=== PATIENT | female | born 1955 | race Caucasian/White ===

== ENCOUNTER 2018-12-29 08:48 | Inpatient (IN) | payer OTHER ==
[~2018-12-29] VITALS: Ht 152.4 cm; Wt 81.6 kg
--- NOTE | 2018-12-29 08:54 | NUR ---
DR WHITNEY AT BEDSIDE FOR EVAL AT THIS TIME//APR RN
--- NOTE | 2018-12-29 09:00 | NUR ---
CLEANED PATIENT, SMALL BM X 1.//APR RN
[2018-12-29 09:25] VITALS: Ht 152.4 cm; Wt 81.6 kg
[2018-12-29 09:27] LABS: PLATELET COUNT 226 x10^3mcL (130-400); RED CELL DISTRIBUTION WIDTH 13.6 % (11.5-14.5)
[2018-12-29 09:39] LABS: BILIRUBIN TOTAL 0.94 mg/dL (0.20-1.00); CALCIUM 8.6 mg/dL (8.5-10.1); CARBON DIOXIDE 18.7 mmol/L (21-32); POTASSIUM SERUM 3.4 mmol/L (3.5-5.1); TOTAL PROTEIN, SERUM 6.2 g/dL (6.4-8.2)
[2018-12-29 09:41] LABS: CREATININE SERUM 4.2 mg/dL (0.6-1.0)
--- NOTE | 2018-12-29 09:42 | NUR ---
PATIENT OUT OF UNIT FOR CT SCAN AT THIS TIME//APR RN
--- NOTE | 2018-12-29 10:00 | NUR ---
F/C INSERTED, 16 FR, URINE COLLECTED AND SENT TO LAB.//NOV RN
[2018-12-29 10:04] LABS: BAND NEUTROPHIL 9 % (0-10); BASOPHIL 0 % (0-2); MONOCYTE 2 % (0-7); SEGMENTED NEUTROPHILS 77 % (37-75)
[2018-12-29 10:05] LABS: PLATELET MORPHOLOGY PLATELETS NORMAL; rbc morphology (normal/abnorm) ABNORMAL (NORMAL)
[2018-12-29 10:44] LABS: UA SPECIFIC GRAVITY 1.015 (1.005-1.035); microscopic required? YES; urine erythrocyte 3+ (NEGATIVE)
--- NOTE | 2018-12-29 11:30 | NUR ---
DR WHITNEY APPRISED OF PATIENT'S BP: 88/38, NEW ORDER FOR NS BOLUS GIVEN AND CARRIED OUT../APR RN
[2018-12-29] MEDS ORDERED: VIMPAT100 M1 PO (11:36)
[2018-12-29] MEDS ORDERED: LEVOTHYROXIN0.075 M2 PO (11:36)
[2018-12-29] MEDS ORDERED: VITA-BEE WITH1 EACH PO (11:37)
[2018-12-29] MEDS ORDERED: PROGRAF1 MG PO (11:37)
[2018-12-29] MEDS ORDERED: ESCITALOPRAM OX20 MG PO (11:37)
[2018-12-29] MEDS ORDERED: ALLOPURINOL100 MG PO (11:38)
[2018-12-29] MEDS ORDERED: ASPIR 8181 MG PO (11:38)
[2018-12-29] MEDS ORDERED: CARVEDILOL25 M1 PO (11:38)
[2018-12-29] MEDS ORDERED: FAMOTIDINE40 MG PO (11:39)
[2018-12-29] MEDS ORDERED: NOR10 PO (11:39)
[2018-12-29] MEDS ORDERED: PREDNISONE5 MG PO (11:39)
[2018-12-29] MEDS ORDERED: PRAVACHOL20 MG PO (11:39)
[2018-12-29] MEDS ORDERED: LASIX20 MG PO (11:40)
[2018-12-29] MEDS ORDERED: FERROUS SULFAT325 M2 PO (11:40)
[2018-12-29] MEDS ORDERED: SENNA PLUS1 TAB PO (11:40)
[2018-12-29] MEDS ORDERED: CALCIUM 600 +1 EAC2 PO (11:40)
[2018-12-29] MEDS ORDERED: D3 DOTS2000 UNIT PO (11:41)
[2018-12-29] MEDS ORDERED: LOT5 PO (11:41)
[2018-12-29] MEDS ORDERED: DOC-Q-LACE100 MG PO (11:41)
[2018-12-29] MEDS ORDERED: TRAZODONE50 M1 PO (11:42)
[2018-12-29] MEDS ORDERED: HALOPERIDOL2 MG PO (11:42)
[2018-12-29] MEDS ORDERED: ALENDRONATE SOD70 M2 PO (11:42)
[2018-12-29] MEDS ORDERED: [UNRECOGNIZED DRUG - OTHER] TOP (11:43)
[2018-12-29] MEDS ORDERED: [UNRECOGNIZED DRUG - REMARK] TOP (11:43)
--- NOTE | 2018-12-29 11:45 | NUR ---
MED REC COMPLETED USING LIST BROUGHT IN BY SISTER & REVIEWING W/ SISTER
--- NOTE | 2018-12-29 12:10 | NUR ---
CLEANED PATIENT, SMALL BM X 1.//APR RN
[2018-12-29 12:15] LABS: AMPHETAMINE QUAL UR NONE DETECTED (See below)
[2018-12-29 12:21] LABS: CHOLESTEROL/HDL RATIO 2.4; MAGNESIUM 0.6 mg/dL (1.8-2.4)
--- NOTE | 2018-12-29 12:31 | NUR ---
REPORT GIVEN TO SALVADOR SUGGS FOR ICU 5. ADVISED PATIENT AND SISTER OF TRANSFER TO ICU AT THIS TIME//APR RN
--- NOTE | 2018-12-29 12:40 | NUR ---
PT ARRIVED FROM ED AT THIS TIME ACCOMPANIED BY RN AND 2 ERT. TRANSFERRED FROM [facility] TO ICU BED W/O COMPLICATIONS. AAOX2. SPEECH SLOW AND CLEAR, NO FACIAL DROOP. EXOPTHALMOS NOTED. 2L NC IN PLACE. CHEST EXPANSION SYMM, BREATHING E/U AND REGULAR EFFORT. NO SOB. NO COUGH. NO N/V. ABD SOFT, ROUND. HERNIA TO LEFT SIDE, REDUCIBLE. LIQUID BM. NO EDEMA NOTED. CAP REFILL IMM. PULSES MODERATE TO BUE AND WEAK TO BLE. RIGHT WRIST 24G PERIPHERAL IV SITE WNL AND DRESSING CDI. 2ND NS BOLUS IN PROGRESS.
--- NOTE | 2018-12-29 12:45 | NUR ---
DR. VILLAREAL AT BEDSIDE TO ASSESS PT. UPDATED ON PT'S STATUS AND CONDITION. ALL QUESTIONS ADDRESSED. STATES WILL INPUT ORDER FOR 3RD BOLUS AND INPUT ORDER FOR LEVOPHED NEEDED
--- NOTE | 2018-12-29 13:49 | NUR ---
71/39 (48). LEVOPHED INITIATED @ 2 MCG/MIN
[2018-12-29 13:57] VITALS: BP 85/41
--- NOTE | 2018-12-29 14:13 | NUR ---
73/37 (49) LEVOPHED TITRATED FROM 2 MCG/MIN TO 4 MCG/MIN
--- NOTE | 2018-12-29 14:31 | NUR ---
NIBP 82/33 MAP 53, LEVOPHED TITRATED FROM 4 MCG/MIN TO 6 MCG/MIN. WILL CONT TO MONITOR.
--- NOTE | 2018-12-29 14:37 | NUR ---
ECHOCARDIOGRAM PENDING-HAVING PROCEDURE
--- NOTE | 2018-12-29 15:01 | NUR ---
DR. PICHARDO AT BEDSIDE TO ASSESS PT. UPDATED ON PT'S STATUS AND CONDITION. STATES TO SET UP CVP ONCE CENTRAL LINE IS CONFIRMED AND IF <6 ADMINISTER ONE LITER NS BOLUS. SPEAKING WITH PT'S SISTER
[2018-12-29 15:15] VITALS: BP 89/42
--- NOTE | 2018-12-29 15:31 | NUR ---
BP 71/36 (48) LEVOPHED TITRATED FROM 6 MCG/MIN TO 8 MCG/MIN.
--- NOTE | 2018-12-29 17:05 | NUR ---
BP 86/41 (56). LEVOPHED TITRATED FROM 8 MCG/MIN TO 10 MCG/MIN
--- NOTE | 2018-12-29 17:59 | NUR ---
BP 83/36 (55). LEVOPHED TITRATED FROM 10 MCG/MIN TO 12 MCG/MIN.
[2018-12-29 18:36] LABS: T3 TOTAL 0.61 ng/mL
[2018-12-29 18:36] LABS: CALCIUM 7.1 mg/dL (8.5-10.1); CARBON DIOXIDE 16.4 mmol/L (21-32); POTASSIUM SERUM 3.4 mmol/L (3.5-5.1)
[2018-12-29 18:38] LABS: CREATININE SERUM 4.4 mg/dL (0.6-1.0)
--- NOTE | 2018-12-29 18:47 | NUR ---
77/42 (53). LEVOPHED TITRATED FROM 12 MCG/MIN TO 6 MCG/MIN AND NEOSYNEPHRINE INITIATED @ 50 MCG/MIN. WILL CONTINUE TO MONITOR
--- NOTE | 2018-12-29 18:58 | NUR ---
84/40 (59) NEOSYNEPHRINE TITRATED FROM 50 MCG/MIN TO 75 MCG/MIN. LEVOPHED INFUSING @ 6 MCG/MIN
[2018-12-29 19:00] LABS: FREE T4 2.49 ng/dL (0.76-1.46); FREE THYROXINE INDEX 3.1 ug/dL (1.4-4.5); T4(THYROXINE) 7.4 ug/dL (4.7-13.3)
--- NOTE | 2018-12-29 19:06 | NUR ---
RECEIVED REPORT FROM IFEANYI FRANCO. ASSUMING ALL CARE
[2018-12-29 19:12] VITALS: BP 84/40
--- NOTE | 2018-12-29 19:12 | NUR ---
PT IS A/OX3. RESPONDS TO VERBAL STIMULI. PUPILS WITH SLUGGISH RESPONSE TO LIGHT, 4 MM BILAT. NO FACIAL DROOP NOTED. PT ABLE TO FOLLOW COMMANDS AND MAKE NEEDS KNOWN. PT WITH PERIODS OF CONFUSION NOTED. EENT FREE OF DISCHARGE. PT IS PARTIALLY BLIND. ORAL MUCOSA PINK AND MOIST. LIJ CVC IN PLACE WITH DRESSING CDI. BREATHING IS E/U ON 2 LPM VIA NC. LUNGS SOUND CLEAR TO BUL AND DIMIN TO BLL. SYMMETRICAL CHEST EXPANSION NOTED. S1/S2 HEART SOUNDS AUSCULTATED. CHEST WALL EQUAL AND SYMMETRICAL. CVP=12. LEVOPHED INFUSING @ 6 MCG/MIN, NEOSYNEPHRINE INFUSING @ 75 MCG/MIN. MOD PULSES X4 EXTREMITIES AND WEAK PULSES NOTED TO BLE. CAP REFILL <3 SECS. SKIN IS WARM AND DRY. NO EDEMA NOTED. SCD IN PLACE. RIGHT WRIST IV REMAINS SALINE LOCKED. 1/2 NS INFUSING @ 100 ML/HR. ABD IS SOFT/ROUND. BOWEL SOUNDS ACTIVE X4 QUADRANTS. HERNIA NOTED TO LLQ. NO BM NOTED. PT WITH MOREL INTACT/SECURED, DRAINING VIA GRAVITY WITH YELLOW COLORED URINE. POOR URINE OUTPUT NOTED. NO LABIAL EDEMA NOTED. INACTIVE LEFT AV SHUNT WITH NO BRUIT/THRILL. WARTS NOTED TO BILAT TOES, LEFT FINGERS, AND RIGHT THUMB. SKIN IS INTACT. PT ASSISTED TO REPOSITION Q2H AND PRN FOR COMFORT. PT IS CALM AND COOPERATIVE. FAMILY AT BEDSIDE. BED IN LOW POSITION. CALL LIGHT IN REACH. WILL CONT TO MONITOR
--- NOTE | 2018-12-29 19:15 | NUR ---
NIBP 87/42, MAP 57. LEVOPHED TITRATED TO 8 MCG/MIN
--- NOTE | 2018-12-29 19:20 | NUR ---
DR. SALVADOR AT BEDSIDE SPEAKING WITH THE PT AND FAMILY IN REGARDS TO PT'S STATUS AND POC. ALL QUESTIONS/CONCERNS ADDRESSED AT THIS TIME. PER DR. SALVADOR, ORDER 25% ALBUMIN X2 ADMINISTERED [address] MARCOS AT BEDSIDE RECEIVING VERBAL ORDER.
--- NOTE | 2018-12-29 19:45 | NUR ---
PT TAKEN FOR CT OF ABD VIA GUERNEY ACCOMPANIED BY PRIMARY RN AND CHASSIS DRIVER.
--- NOTE | 2018-12-29 19:59 | NUR ---
DR CLINTON CALLED, UPDATED ON STATUS. MADE AWARE REGARDING PTS MEROPENEM ORDER ON HOLD D/T PTS ALLERGY TO PCN AND ALSO WITH HX OF KIDNEY TRANSPLANT. TELEPHONE ORDER GIVEN FOR MEROPENEM 1 GM X1 NOW, THEN MEROPENEM 500MG Q12H. TELEPHONE ORDER READ BACK. ORDER NOTED AND CARRIED OUT.
--- NOTE | 2018-12-29 20:10 | NUR ---
PT RETURNED FROM CT-SCAN. PT TOLERATED WELL. NO S/S OF ACUTED DISTRESS NOTED. PT RECONNECTED TO FULL GYMNASIUM TEACHER. NIBP 88/36, MAP 54. NEOSYNEPHRINE TITRATED TO 100 MCG/MIN. PT ON 2 LPM VIA NC WITH 95% O2 SATURATION. PT NOTED TO HAVE A MOD SIZE LIQUID BM. FULL LINEN CHANGE PROVIDED. FAMILY AT BEDSIDE. BED IN LOW POSITION. CALL LIGHT IN REACH. WILL CONT TO MONITOR.
--- NOTE | 2018-12-29 21:30 | NUR ---
NIBP 82/38, MAP 55. LEVOPHED TITRATED TO 12 MCG/MIN
--- NOTE | 2018-12-29 21:57 | NUR ---
PT C/O FEELING NAUSEAS. PT MEDICATED WITH ZOFRAN 4 MG IVP PER EMAR. WILL CONT TO MONITOR
--- NOTE | 2018-12-29 22:00 | NUR ---
NIBP 116/58, MAP 80. LEVOPHED TITRATED TO 10 MCG/MIN
--- NOTE | 2018-12-29 23:03 | NUR ---
REPORTED (+) BLOOD CX OF GRAM NEG RODS TO DR SUGGS. NO NEW ORDERS GIVEN.
[2018-12-29 23:10] VITALS: BP 95/43
--- NOTE | 2018-12-30 00:30 | NUR ---
NIBP 117/80, MAP 80. NEOSYNEPRHINED TITRATED TO 75 MCG/MIN
--- NOTE | 2018-12-30 00:45 | NUR ---
NIBP 108/55, MAP 75. LEVOPHED TITRATED TO 8 MCG/MIN
--- NOTE | 2018-12-30 01:30 | NUR ---
NIBP 111/57, MAP 76. NEOSYNEPHRINE TITRATED TO 50 MCG/MIN
--- NOTE | 2018-12-30 01:35 | NUR ---
DR. CLINTON AT BEDSIDE. UPDATED ON PT'S STATUS. MADE AWARE BLOOD CULTURES ARE POSITIVE FOR GRAM NEGATIVE BACILLI. PER DR. CLINTON, DC ZYVOX AND CONTINUE WITH MERREM ABX. WILL CARRY OUT ORDER
--- NOTE | 2018-12-30 01:45 | NUR ---
NIBP 116/83, MAP 98. NEOSYNEPHRINE TITRATED TO 25 MCG/MIN
--- NOTE | 2018-12-30 01:46 | NUR ---
PT C/O GEN ABD PAIN RATED 8/10. PT MEDICATED WITH NORCO PER EMAR
--- NOTE | 2018-12-30 02:00 | NUR ---
NIBP 110/57, MAP 76. NEOSYNEPHRINE TURNED OFF AT THIS TIME
--- NOTE | 2018-12-30 02:00 | NUR ---
NIBP 110/57, MAP 76. LEVOPHED TITRATED TO 6 MCG/MIN
--- NOTE | 2018-12-30 02:15 | NUR ---
NIBP 101/48, MAP 76. LEVOPHED TITRATED TO 4 MCG/MIN
--- NOTE | 2018-12-30 03:01 | NUR ---
PT C/O FEELING NAUSEAS. PT MEDICATED WITH ZOFRAN 4 MG IVP PER EMAR
[2018-12-30 03:07] VITALS: BP 105/51
--- NOTE | 2018-12-30 04:15 | NUR ---
NIBP 132/56, MAP 94. LEVOPHED TITRATED TO 2 MCG/MIN
--- NOTE | 2018-12-30 04:30 | NUR ---
NIBP 141/47, MAP 82. LEVOPHED TURNED OFF AT THIS TIME
[2018-12-30 04:34] LABS: MAGNESIUM 1.3 mg/dL (1.8-2.4); PHOSPHOROUS 6.8 mg/dL (2.5-4.9)
[2018-12-30 04:37] LABS: BILIRUBIN TOTAL 2.52 mg/dL (0.20-1.00); CALCIUM 6.7 mg/dL (8.5-10.1); CARBON DIOXIDE 15.8 mmol/L (21-32); POTASSIUM SERUM 4.5 mmol/L (3.5-5.1)
[2018-12-30 04:42] LABS: ALBUMIN 3.1 g/dL (3.4-5.0); CREATININE SERUM 4.5 mg/dL (0.6-1.0); TOTAL PROTEIN, SERUM 5.7 g/dL (6.4-8.2)
--- NOTE | 2018-12-30 04:53 | NUR ---
PT HAD A MOD SIZE LIQUID DARK GREEN BM. STOOL CULTURE OBTAINED AND SENT TO LAB. FULL BED BAD PROVIDED. GOWN AND LINENS CHANGED. PERICARE AND MOREL CARE PROVIDED. SCD APPLIED TO BLE. 1/2NS INFUSING @ 100 ML/HR. BED IN LOW POSITION. CALL LIGHT IN REACH. WILL CONT TO MONITOR
[2018-12-30 04:58] LABS: BASOPHIL % 0 % (0-2); PLATELET COUNT 121 x10^3mcL (130-400)
--- NOTE | 2018-12-30 05:03 | NUR ---
CRITICAL LAB RESULT: WBC 33.3. DR. SUGGS MADE AWARE
--- NOTE | 2018-12-30 06:16 | NUR ---
SPOKE TO DR. SALVADOR VIA TELEPHONE. UPDATED ON PT'S CURRENT STATUS AND MOST RECENT LABS. NO NEW ORDERS.
--- NOTE | 2018-12-30 07:10 | NUR ---
REPORT GIVEN TO CAROLINE FRANCO FOR CONTINUITY OF CARE. ALL QUESTIONS/CONCERNS ADDRESSED AT THIS TIME. ENDORSING ALL CARE
[2018-12-30 07:18] VITALS: BP 109/56
--- NOTE | 2018-12-30 07:18 | NUR ---
THE PATIENT IS SLIGHTLY LETHARGIC, AND ORIENTED TO PERSON AND TIME WITH EPISODES OF CONFUSION. PATIENT DENIES PAIN OR SHORTNESS OF BREATH AT THIS TIME. LIJ CVC WITH DRESSING INTACT. CVP 13. IVF 1/2 NS AT 100 ML/HR. ANOTHER IV SITE TO RIGHT WRIST. PATIENT IS ON OXYGEN 2L/MIN. BREATHING IS EVEN AND UNLABORED. MOREL CATH TO GRAVITY DRAINING SCANT AMOUNT OF YELLOW URINE. CALL LIGHT WITHIN REACH. SIDE RAILS UP X3. BED IS AT LOWEST POSITION.
--- NOTE | 2018-12-30 10:10 | NUR ---
DR. ZHENG AND DR. JOSE ARE MAKING ROUND TO SEE THE PATIENT.
--- NOTE | 2018-12-30 11:15 | NUR ---
DR. LOPES IN TO SEE THE PATIENT. UPDATE WAS PROVIDED TO THE DOCTOR.
--- NOTE | 2018-12-30 11:16 | NUR ---
DR. MARQUEZ UPDATED PLAN OF CARE, ORDERED PROMATINE PO 5MG TID, D5W WITH BICARB X3AMPS @100ML/HR AND NA+BICARB 650MG PO Q6HRS.HD TO BE HOLD OFF AND CONTINUE TO MONITOR URINE OUT. AWAITING FOR ORDERS TO BE ENTER.
--- NOTE | 2018-12-30 12:02 | NUR ---
PATIENT HAD BM WITH WATERY STOOL; PATIENT WAS CLEANSED, AND GOWN/LINEN CHANGED.
[2018-12-30 12:09] VITALS: BP 116/62
[2018-12-30 16:00] VITALS: BP 108/52
[2018-12-30 16:23] LABS: CALCIUM 6.9 mg/dL (8.5-10.1); CARBON DIOXIDE 17.6 mmol/L (21-32); POTASSIUM SERUM 3.6 mmol/L (3.5-5.1)
[2018-12-30 16:37] LABS: CREATININE SERUM 4.3 mg/dL (0.6-1.0)
--- NOTE | 2018-12-30 16:44 | NUR ---
NOTIFIED DR. JOSE NA 123 CREAT 4.3 MADE AWARE, RECIEVED NO NEW ORDERS.
--- NOTE | 2018-12-30 17:50 | NUR ---
DR. LOPES AND DR. JOSE ARE AT BEDSIDE DISCUSSING THE CARE PLAN OF THE PATIENT TO THE FAMILY.
--- NOTE | 2018-12-30 18:21 | NUR ---
PROVIDED UPDATES TO DR. CLINTON WBC 33.3 AND VITAL SIGNS. RECIEVED NO NEW ORDERS.
--- NOTE | 2018-12-30 18:24 | NUR ---
DR. GAINES AT BEDSIDE DISCUSSING HD OPTIONS WITH FAMILY AND PT AT BEDSIDE. PER MD TO MONITOR NA LEVEL AND CREAT BUN Q6HRS AND TO CONTINUE TO MONITOR.
--- NOTE | 2018-12-30 19:03 | NUR ---
SODIUM BICARB 100ML IN 1/2NS 1000ML IVF CHANGED FOR THE PATIENT AND THE RATE 70CC/HR. THE FAMILY IS AT BEDSIDE WITH THE PATIENT.
--- NOTE | 2018-12-30 19:30 | NUR ---
RECEIVED REPORT FROM SALVADOR FARRIS. PT IS ALERT AND ORIENTED X3. LETHARGIC. 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 PT IS BREATHING E.U ON 2L NC. LUNG SOUNDS CLEAR TO BILATERAL UPPER LOBES, DIMINISHED TO BILATERAL LOWER LOBES. ABD IS SOFT AND ROUNDED WITH ACTIVE BOWEL SOUNDS X4Q, WITH PROTRUSION TO LEFT SIDE OF ABD. MOREL DRAINING VIA GRAVITY, URINE YELLOW WITH POOR OUTPUT. PT HAS LIJ AND RIGHT HAND IV PATENT, DRESSING CDI. SODIUM BICARB INFUSING AT 70 ML/HR. ALL QUESTIONS AND CONCERNS ANSWERED, WILL CONTINUE TO MONITOR.
--- NOTE | 2018-12-30 22:01 | NUR ---
DR. GAINES CALLED TO ASK FOR SERUM OSM. AND URINE OSM. STAT. ALSO ASKED THAT THE TAROLIMUS LEVEL BE CHECKED ONE HOUR PRIOR TO ADMINISTRATION. FINALLY, HE WOULD LIKE TO BE CALLED WHEN THE LAB RESULTS COME IN FOR 10 PM. HE LEFT HIS PHONE NUMBER [phone].
[2018-12-30 22:42] LABS: CALCIUM 6.4 mg/dL (8.5-10.1); CARBON DIOXIDE 20.4 mmol/L (21-32); POTASSIUM SERUM 3.5 mmol/L (3.5-5.1)
[2018-12-30 23:05] LABS: CREATININE SERUM 4.3 mg/dL (0.6-1.0)
--- NOTE | 2018-12-30 23:40 | NUR ---
DAUGHTER STANLEY ROSALES LEFT HER PHONE NUMBER: [phone].
--- NOTE | 2018-12-31 00:46 | NUR ---
DR. LOPES CALLED, MADE HIM AWARE OF ABNORMAL LABS, WELL SERUM OSMALALITY AND URINE OSMALALITY. ORDERED CXR FOR 0500, AND WOULD LIKE A PHONE CALL IF SODIUM BECOMES <120.
[2018-12-31 05:05] LABS: BASOPHIL % 0 % (0-2); CALCIUM 6.6 mg/dL (8.5-10.1); CARBON DIOXIDE 21.7 mmol/L (21-32); MAGNESIUM 1.9 mg/dL (1.8-2.4); PHOSPHOROUS 5.5 mg/dL (2.5-4.9); PLATELET COUNT 91 x10^3mcL (130-400); POTASSIUM SERUM 3.4 mmol/L (3.5-5.1); RED CELL DISTRIBUTION WIDTH 14.3 % (11.5-14.5)
[2018-12-31 05:13] LABS: CREATININE SERUM 4.2 mg/dL (0.6-1.0)
--- NOTE | 2018-12-31 05:38 | NUR ---
PROVIDED PT WITH FULL BED BATH, CENTRAL LINE CARE, AND MOREL CARE. PT HAD 1 LOOSE BM. PT TOLERATED WELL.
--- NOTE | 2018-12-31 07:18 | NUR ---
DR. LOPES CALLED TO CHECK FOR UPDATES. LABS WERE READ OFF TO ORDERED THAT SODIUM BICARB BE DECREASED TO 50 ML/HR.
[2018-12-31 07:45] VITALS: BP 127/81
--- NOTE | 2018-12-31 07:45 | NUR ---
RESUME CARE: THE PATIENT MORE AWAKE AND ORIENTED TO PERSON, PLACE AND DATE OF WITH EPISODES OF FORGETFULNESS. PATIENT COMMUNICATES WITH SLOW SPEECH, AND ABLE TO MAKE NEEDS KNOWN. TELE # 5 READS SINUS RHYTHMS. CVC TO LIJ WITH CVP 12. IVF SODIUM BICARB WITH 1/2NS AT 70 CC/HR. ANOTHER IV SITE AT RIGHT WRIST. MOREL CATH TO GRAVITY DRAINING YELLOW URINE. CALL LIGHT WITHIN REACH. SIDE RAILS UP X3. BED AT LOWEST POSITION, AND ALARM IS ON.
--- NOTE | 2018-12-31 10:05 | NUR ---
DR. ZHENG AT BEDSIDE WITH RESIDENTS. PROVIDED UPDATES AND PT'S NA 123, BUN 54 AND CREAT. PER MD TO TRANSFER PT TO TELE.
--- NOTE | 2018-12-31 10:58 | NUR ---
EMPTIED 510ML OF CLEAR YELLOW URINE OUTPUT.
[2018-12-31 11:26] LABS: CALCIUM 6.8 mg/dL (8.5-10.1); CARBON DIOXIDE 22.3 mmol/L (21-32); POTASSIUM SERUM 3.3 mmol/L (3.5-5.1)
[2018-12-31 11:41] LABS: CREATININE SERUM 4.1 mg/dL (0.6-1.0)
[2018-12-31 11:43] VITALS: BP 128/67
--- NOTE | 2018-12-31 14:28 | NUR ---
NASAL CANNULA REMOVED FROM THE PATIENT'S NOSE BY RT XAVIER; O2 SAT 95% WHILE THE PATIENT IS ON ROOM AIR.
--- NOTE | 2018-12-31 14:33 | NUR ---
PT STAFF CAME TO BEDSIDE FOR PT TREATMENT.
--- NOTE | 2018-12-31 14:33 | NUR ---
EMPTIED MOREL CATH 425ML OF CLEAR YELLOW OUTPUT.
--- NOTE | 2018-12-31 14:42 | NUR ---
DR. PICHARDO IN TO SEE THE PATIENT.
--- NOTE | 2018-12-31 14:43 | NUR ---
Intervention 1. Continue with Cardiac -LoChol-LowFat and add mechanically soft chopped texture.
--- NOTE | 2018-12-31 14:43 | NUR ---
[facility] Dx: Sepsis, Renal Failure, UTI PMHx: Seizure disorder, Lupus, renal transplant in 1995, HTN, Hypothyroidism, Psychosis PSHx: Kidney transplant in 1995, b/l hip replacements, b/l nephrectomy 5-6 yrs ago, tumor in throat 5 years ago Labs: (12/29) A1C 5.8 (12/31) Na 123L, K 3.4L, Cl 89L, Glucos 206H, BUN 54H, Creat 4.2H, ca 6.6L, Phos 5.5H, WBC 18.3H, Hgb 8.2L, Hct 24L Meds: Colace, Dextrose 50% water, Ferrous Sulfate, Humulin, Lexapro, Pepcid, Precision PCX Blood Glucose Strips, Solu-Cortef, Vitamin D, Zofran, Heparin Sodium Diet: Cardiac-LoChol/LoFat/2gNa PO Intake: (12/29) NPO, (12/30) Cardiac B-30%, Cardiac L-20%, Cardiac D-40%, (12/31) Cardiac L-50%(per SALVADOR Alvarado) Ht: 152cm, 59in Wt: 81.6kg, 179# BMI: 35.2kg/m2 (Obese) Bed scale: 182# (taken by SALVADOR Alvarado) IBW: 99#, 45kg %IBW: 180% UBW: Not able to obtain due to pt sleeping and no family members with her. Age: 63/F Food Allergies: Egg Skin:Intact, but has warts on hand and feet Lul: 16 Edema: None GI: Last BM: 12/30/18 Trigger: admitted w/potential risk diagnosis. Per H&P: 63 year old female with past medical history of seizure disorder, lupus, renal transplant in 1995 brought in by ambulance from home with one day history of generalized weakness. Per sister, Tracey, patient was slow to get out of bed this morning. She stood up, felt dizzy, and immediately sat back down. Sister thinks she may have fainted but she stated patient felt hot and seemed confused. She also states patient did not eat anything last night, had one episode of nonbloody, nonbilious diarrhea, and one episode of nonbloody, nonbilious vomiting. Also complains of lower abdominal pain and dysuria. Patient denies any chest pain, shortness of breath, or headache. Patient follows up with Dr. Yobany Davis at [place] for her renal transplant. Patient was recently discharged last week from [place] for acute diastolic CHF. Patient is ambulatory with cane at baseline and not on home oxygen. Pt Visit: Pt was sleeping when I arrived to her room and she had no family at bedside to answer questions. Spoke with RN Jenny and she pt had no nausea, vomiting, or constipation. Jenny stated she had only a little bit of diarrhea. Jenny stated her PO intake was 50% because she has a hard time chewing hard textured foods like her meat. Jenny did say she has all her teeth, but that she chews and eats very slowly. Jenny stated that the pt is currently not on dialysis yet. Spoke with Dr. Aguila about adding mechanically soft chopped texture to current diet. Problem with: N: No V: No D: Yes C: No Problems with: Chewing: None Swallowing: None Current appetite: Fair Recent wt change: None %wt change: None Vitamin/Supplement use: Currently taking Iron and Vit. D in the hospital, no one available to ask if she takes any at home. Special diet at home: Unable to attain at this time (pt was asleep and no one at bedside) Physical activity: Unable to attain at this time (pt was asleep and no one at bedside) Education: Unable to give at this time due to pt sleeping and no one at bedside. Will be followed up at next visit. 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 Inadequate oral intake r/t difficulty chewing her food aeb po intake of 50% and diet recommendation of mechanically soft chopped foods. Intervention 1. Continue with Cardiac -LoChol-LowFat and add mechanically soft chopped texture. Monitor/Evaluate Goal: PO intake at least 75% of estimated needs Monitor: PO intake, Labs, GI function, tolerance of diet and textures HR F/U in 01/02-01/03
--- NOTE | 2018-12-31 14:45 | NUR ---
DR. HART (COVERING DR. JOSE) WAS INFORMED OF THE AMOUNT OF URINE OUTPUT TOTAL OF 935ML: 510ML BEFORE LASIX 40MG IVP GIVEN AT ABOUT 1057 AM AND 425ML OF URINE AFTER LASIX).
--- NOTE | 2018-12-31 14:57 | NUR ---
RECEIVED REPORT FROM KALEIGH FRANCO IN ICU. AWAITING PATIENT ARRIVAL TO FLOOR.
--- NOTE | 2018-12-31 14:57 | NUR ---
REPORT GIVEN TO SALVADOR GALINDO. FROM [facility] UNIT. CONCERNS WERE ADDRESSED. THE PATIENT WILL BE TRANSFERRED TO ROOM 253A.
--- NOTE | 2018-12-31 15:30 | NUR ---
THE PATIENT WAS TRANSFERRED TO ROOM 253A; PATIENT WAS ACCOMPANIED BY HER NIECE, MERON. THE PATIENT'S HOME MED: VIMPAT 100MG PO X 25 TABLETS WAS HANDED TO JOSIE, THE RECEIVING NURSE.
--- NOTE | 2018-12-31 15:40 | NUR ---
SHORTLY AFTER ARRIVAL TO FLOOR, [place] WAS TRANSFERRED TO ROOM 244-A. ALL NEEDS MET.
--- NOTE | 2018-12-31 15:44 | NUR ---
DR. HART WAS INFORMED THAT THE PATIENT'S PLT LEVEL 91 THIS MORNING, SO HEPARIN SQ 5000 UNITS WAS HELD AT 09 AM.
--- NOTE | 2018-12-31 15:53 | NUR ---
RECEIVED PATIENT FROM ICU VIA WHEELCHAIR ACCOMPANIED BY KALEIGH FRANCO. PT WAS ASSISTED TO BED. PATIENT HOME MEDICATION WAS COUNTED AND VERIFIED BY MYSELF AND KALEIGH FRANCO. A TOTAL OF 25 TABLETS COUNTED. MEDICATION PLACED IN LOCK BOX IN MED ROOM. IV FLUID SODIUM BICARB RESUMED. VIATLS TAKEN AND STABLE (SEE DOCUMNETATION). ALL QUESTIONS AND CONCERNS ADDRESSED.
--- NOTE | 2018-12-31 16:38 | NUR ---
DR LOPES IN TO SEE AND ASSESS PATIENT. ORDERED CONTINUATION OF STRICT I&O, ORDERED BMP AND PHOS LABS @ 17:00 12/31/18 AND TO CALL WITH RESULTS. ENSURED LAB DRAW FOR TOMORROW. D/C SODIUM BICARB PO.
[2018-12-31 17:04] VITALS: BP 109/50
[2018-12-31 17:11] LABS: CALCIUM 6.9 mg/dL (8.5-10.1); CARBON DIOXIDE 20.5 mmol/L (21-32); CREATININE SERUM 3.9 mg/dL (0.6-1.0); PHOSPHOROUS 5.1 mg/dL (2.5-4.9); POTASSIUM SERUM 3.2 mmol/L (3.5-5.1)
--- NOTE | 2018-12-31 17:26 | NUR ---
NOTIFIED DR LOPES OF K+ 3.2, PHOS 5.1, NA+ [address] LOPES ORDERED TO CONTINUE WITH CURRENT TREATMENT AND ALSO ORDERED 20 MEQ KCL IV.
--- NOTE | 2018-12-31 19:18 | NUR ---
REPORT GIVEN TO EASTON FRANCO. PT RESTING COMFORTABLY IN BED WITH SISTERS AT BEDSIDE. CENTRAL LINE TO LIJ IS PATENT AND INFUSING SODIUM BICARB IN 1/2 NS @ 50 ML/HR. NO REDNESS OR PAIN. SALINE LOCK TO RT WRIST IS PATENT AND INTACT. NO REDNESS OR PAIN. PT ON ROOM AIR. NO C/O SOB AND NO DISTRESS NOTED. TELE # [address] NO C/O CHEST PAIN. ALL QUESTIONS AND CONCERNS ADDRESSED.
--- NOTE | 2018-12-31 19:53 | NUR ---
RECEIVED PT IN BED AWAKE ORIENTED X4 VERBAL TOGOLESE SPEAKING, GEN WEAKNESS FOLLOWS COMMANDS, FORGETFUL @ TIMES, POOR VISION, NO HEADACHE OR DIZZINESS TELE #8 SR WITH BBB NO CP OR PRESSURE, IV SODIUM BICARB WITH 1/2NS INFUSING @ 50CC/HR INFUSING @ LIJ, RT WRIST IV HEPLOCKED, PATENT NON INFIL, F/C INPLACED WTTH PALE YELLOW URINE OUTPUT NO SEDIMENTS, FLUID RESTRICTION POSTED, TRACED EDEMA BLE PALPABLE PULSES, SHIFT ASSESSMENT DONE, ATTENDED NEEDS, FAMILY AT BEDSIDE FOR VISIT, CONT TO MONITOR.
[2018-12-31 21:12] VITALS: BP 122/56
--- NOTE | 2019-01-01 01:15 | NUR ---
RECEIVED A CALL FROM DR LOPES WITH TO/RB TO STOP THE FLUIDS FOR NOW AND D/C MEDS THAT HAS SALT, WILL CHECK AM LABS IF NA >130 OR <[address] LOPES WITH TEL NO PROVIDED.
--- NOTE | 2019-01-01 01:32 | NUR ---
AM LABS ORDER CHANGE TIME DRAW @ 0400 FOR EARLIER RESULT, DC'D FLUIDS ORDERED, CONT TO MONITOR.
[2019-01-01 04:42] LABS: RED CELL DISTRIBUTION WIDTH 14.1 % (11.5-14.5)
[2019-01-01 04:49] LABS: PLATELET COUNT 84 x10^3mcL (130-400)
[2019-01-01 04:52] LABS: CALCIUM 7.8 mg/dL (8.5-10.1); CARBON DIOXIDE 23.6 mmol/L (21-32); CREATININE SERUM 3.7 mg/dL (0.6-1.0); MAGNESIUM 1.8 mg/dL (1.8-2.4); PHOSPHOROUS 5.2 mg/dL (2.5-4.9)
[2019-01-01 05:14] LABS: BAND NEUTROPHIL 2 % (0-10); MONOCYTE 1 % (0-7); SEGMENTED NEUTROPHILS 93 % (37-75)
[2019-01-01 05:17] LABS: PLATELET MORPHOLOGY PLATELETS DECREASED; acanthocyte (spur cell) 1+; rbc morphology (normal/abnorm) ABNORMAL (NORMAL)
--- NOTE | 2019-01-01 05:40 | NUR ---
CALLED DR LOPES FOR LAB RESULTS CBC, BMP, PHOS AND MG, WITH ABNORMAL LEVELS ORDERS GIVEN NOTED AND CARRIED OUT.
[2019-01-01 06:17] VITALS: BP 149/63
--- NOTE | 2019-01-01 07:46 | NUR ---
RECEIVED PT RESTING IN BED WITH EYES CLOSED BUT AROUSABLE. NO ACUTE DISTRESS. PT BLIND BOTH EYES. R EYE SLIGHTLY SWOLLEN. PT GETTING BREATHING TREATMENT AT THIS TIME. GEN WEAKNESS. FALL PRECAUTIONS IN PLACE. MOREL CATHETER DRAINING YELLOW URINE TO GRAVITY. 1 LITER DAILY FLUID RESTRICTION. IVF INFUSING TO LIJ, NO REDNESS OR SWELLING NOTED. R WRIST IV WITH NO REDNESS OR SWELLING. BED IN LOW POSITION, CALL LIGHT WITHIN REACH. WILL CONTINUE TO MONITOR.
[2019-01-01 08:22] VITALS: BP 150/63
--- NOTE | 2019-01-01 11:40 | NUR ---
PT RESTING IN BED. NO ACUTE DISTRESS. RESP EVEN AND UNLABORED ON RA. NO C/O PAIN. HOB SLIGHLTY ELEVATED. MOREL CATHETER DRAINING LIGHT YELLOW URINE TO GRAVITY. IVF INFUSING, NO REDNESS OR SWELLING NOTED. SEIZURE AND FALL PRECAUTIONS. CALL LIGHT WITHIN REACH. WILL CONTINUE TO MONITOR.
[2019-01-01 11:53] LABS: CALCIUM 7.8 mg/dL (8.5-10.1); CARBON DIOXIDE 24.8 mmol/L (21-32); CREATININE SERUM 3.4 mg/dL (0.6-1.0); POTASSIUM SERUM 3.3 mmol/L (3.5-5.1)
[2019-01-01 13:38] VITALS: BP 140/67
--- NOTE | 2019-01-01 14:01 | NUR ---
PHYSICAL THERAPY NOTE ATTEMPTED FOR PHYSICAL THERAPY TX SESSION, PATIENT REFUSED DUE TO NAUSEA AND DIZZINESS AT THIS TIME
[2019-01-01 16:01] VITALS: BP 151/73
--- NOTE | 2019-01-01 18:43 | NUR ---
PT RESTING IN BED. AAOX3. PT C/O N/V, DOES NOT WANT MEDICATION AT THIS TIME. EMESIS BAGS PROVIDED. LIJ CENTRAL LINE C/D/I. IV TO R WRIST WITH NO REDNESS OR SWELLING. HOB ELEVATED. MOREL CARE PROVIDED. BED IN LOW POSITION, CALL LIGHT WITHIN REACH. WILL ENDORSE TO ONCOMING SHIFT.
[2019-01-01 20:07] VITALS: BP 150/62
--- NOTE | 2019-01-01 21:05 | NUR ---
PT'S IN BED NO ACUTE DISTRESS NOTED, LUNG SOUNDS DIMINISHED ON 2L N/C SAT 98%, ABD SOFT BS ACTIVE X4 , PT C/O NAUSEA NO EMESIS NOTED, OFFERED PT ZOFRAN PT REFUSED , HL INTACT FLUSHING WELL , TRIPLE LUMEN CVP TO LIJ INTACT FLUSHING WELL , MOREL TO GRAVITY DRAINING WELL , CALL LIGHT WITHIN PT'S REACH , WILL CON;T TO MONITOR AND TURN PT Q2.
[2019-01-02] VITALS (7 sets, daily range): BP systolic 136–166; BP diastolic 61–73
--- NOTE | 2019-01-02 01:40 | NUR ---
PT'S IN BED WITH EYES CLOSED , RESP EVEN , TELE NSR/BBB .
[2019-01-02 04:47] LABS: RED CELL DISTRIBUTION WIDTH 13.6 % (11.5-14.5)
[2019-01-02 04:52] LABS: PLATELET COUNT 88 x10^3mcL (130-400)
[2019-01-02 04:56] LABS: BAND NEUTROPHIL 1 % (0-10); MONOCYTE 2 % (0-7); SEGMENTED NEUTROPHILS 91 % (37-75)
[2019-01-02 04:59] LABS: PLATELET MORPHOLOGY PLATELETS DECREASED; rbc morphology (normal/abnorm) ABNORMAL (NORMAL)
[2019-01-02 05:06] LABS: CALCIUM 8.3 mg/dL (8.5-10.1); CARBON DIOXIDE 26.3 mmol/L (21-32); CREATININE SERUM 2.9 mg/dL (0.6-1.0); MAGNESIUM 1.7 mg/dL (1.8-2.4); PHOSPHOROUS 5.2 mg/dL (2.5-4.9); POTASSIUM SERUM 3.2 mmol/L (3.5-5.1)
--- NOTE | 2019-01-02 06:24 | NUR ---
NO CHANGES OF CONDITION NOTED, ALL DUE MEDS GIVEN N0 REACTION NOTED, TELE NSR WITH BBB , CVP INTACT INFUSING WELL , MOREL TO GRAVITY DRAINING WELL 1900ML CLEAR YELLOW URINE , HL PATENT FLUSING WELL . CALL LIGHT WITHIN PT'S REACH, NO SZ ACTIVITY NOTED.
--- NOTE | 2019-01-02 07:35 | NUR ---
RECEIVED PT RESTING IN BED. PT WITH N/V, GIVEN EMESIS BAG REQUESTED. AAOX3. RESP EVEN AND UNLABORED ON RA. LIJ CENTRAL LINE WITH DRESSING C/D/I. IV TO R WRIST, NO REDNESS OR SWELLING NOTED. MOREL CATHETER DRAINING LIGHT YELLOW URINE TO GRAVITY. HOB ELEVATED. BED IN LOW POSITION, CALL LIGHT WIHTIN REACH. WILL CONTINUE TO MONITOR.
--- NOTE | 2019-01-02 12:46 | NUR ---
PT SITTING UP IN CHAIR EATING LUNCH. NO ACUTE DISTRESS. ASSISTED BY FAMILY MEMBER. LIJ CENTRAL LINE AND R WRIST IV WITH NO REDNESS OR SWELLING. MOREL CATHETER DRAINING LIGHT YELLOW URINE TO GRAVITY. CALL LIGHT WITHIN REACH. WILL CONTINUE TO MONITOR.
--- NOTE | 2019-01-02 13:59 | NUR ---
PT ASSISTED BACK TO BED. CALL LIGHT WITHIN REACH. HOB SLIGHTLY ELEVATED. WILL CONTINUE TO MONITOR.
--- NOTE | 2019-01-02 17:38 | NUR ---
PT DISCHARGED TO HOME WITH HOME HEALTH IN NO ACUTE DISTRESS. AWAKE, ALERT, AND ORIENTED. VSS. TRANSPORTED VIA WHEELCHAIR. RX GIVEN. DISCHARGE EDUCATION PROVIDED, PT'S FAMILY VERBALIZED UNDERSTANDING. INSTRUCTED PT'S FAMILY TO HAVE PT FOLLOW UP WITH PCP. IV TO R WRIST DC'D WITH CATHETER INTACT. LIJ CENTRAL LINE DC'D WITH CATHETER TIP INTACT. TELE REMOVED. BELONGINGS WITH PT. FITZ SCHUMACHER ACCOMPANIED PT TO LOBBY.
== END 2019-01-02 17:39 | disposition home or self-care (01) | DRG 871 ==
LOC: ED 08:48 → DU 10:44 → IC 10:44 → DU 12-31 15:46
PROVIDERS: Emergency Medicine; Internal Medicine; Internal Medicine Nephrology; ADMIT Internal Medicine
PROC: 05HN33Z Insertion of Infusion Device into Left Internal Jugular Vein, Percutaneous Approach (ICD-10-PCS; principal; 2018-12-29)
PROC: B544ZZA Ultrasonography of Left Jugular Veins, Guidance (ICD-10-PCS; 2018-12-29)
DX: A41.89 Other specified sepsis (principal); R65.21 Severe sepsis with septic shock; I63.9 Cerebral infarction, unspecified; N17.0 Acute kidney failure with tubular necrosis; G93.41 Metabolic encephalopathy; N39.0 Urinary tract infection, site not specified; E87.1 Hypo-osmolality and hyponatremia; T86.11 Kidney transplant rejection; E44.1 Mild protein-calorie malnutrition; E11.9 Type 2 diabetes mellitus without complications; E03.9 Hypothyroidism, unspecified; D89.9 Disorder involving the immune mechanism, unspecified; E87.6 Hypokalemia; E83.39 Other disorders of phosphorus metabolism; M32.9 Systemic lupus erythematosus, unspecified; G40.909 Epilepsy, unspecified, not intractable, without status epilepticus; Z96.643 Presence of artificial hip joint, bilateral; Z68.28 Body mass index [BMI] 28.0-28.9, adult; Z79.84 Long term (current) use of oral hypoglycemic drugs
CPT/HCPCS: 36556; 82962; 83880; 84439; 87046; 87046-59; 94150; 97116-GP; 97530-GP; J0610; J0744; J1642; J1644; J1720; J1940; J1956; J2020; J2185 ×2; J2370; J2405; J3475; J3480; J3490; J7030; J7040; J7050; J7507; J7512; J7620; P9047; Q0092